=== PATIENT | male | born 1965 | race Caucasian/White ===

== ENCOUNTER → 2019-02-21 08:32 | Outpatient (CLI) | payer OTHER, SELFPAY ==
[2019-02-21 09:57] LABS: HEMOLYSIS < 15 (0-50)
[2019-02-21 10:05] LABS: Add Manual Diff / Slide Review NO; Alanine Aminotransferase 40 IU/L (<50); Albumin 4.7 g/dL (3.5-5.0); Albumin Globulin Ratio 1.8 (1.0-2.8); Alkaline Phosphatase 63 U/L (38-126); Aspartate Aminotransferase 37 IU/L (17-59); BUN Creatinine Ratio 31.3 (6-22); Basophils Absolute Auto 100 /uL (0-100); Basophils Percent Auto 1.1 % (0-2); Bilirubin Total 0.7 mg/dL (0.2-1.3); Blood Urea Nitrogen 25 mg/dL (9-20); Calcium 9.4 mg/dL (8.4-10.2); Carbon Dioxide 25 mmol/L (22-32); Chloride 106 mmol/L (98-107); Cholesterol 201 mg/dL (140-199); Eosinophils Absolute Auto 300 /uL (0-450); Eosinophils Percent Auto 5.5 % (2-4); Estimated Glomerular Filt Rate > 60.0 mL/min (>60); Globulin 2.6 g/dL (1.7-4.1); Glucose 86 mg/dL (70-100); HDL Cholesterol 44 mg/dL (40-60); Hematocrit 42.8 % (41-53); Hemoglobin 14.7 g/dL (13.5-17.5); LDL Cholesterol Calculated 131 mg/dL (<100); Lymphocytes Absolute Auto 1100 /uL (1100-4500); Lymphocytes Percent Auto 21.1 % (25-40); Mean Corpuscular HGB Conc 34.4 % (30-36); Mean Corpuscular Hemoglobin 30.1 PG (26-34); Mean Corpuscular Volume 87.5 fL (80-100); Monocytes Absolute Auto 300 /uL (0-900); Monocytes Percent Auto 6.6 % (3-14); Neutrophils Absolute Auto 3400 /uL (1500-7000); Neutrophils Percent Auto 65.7 % (50-75); Platelet Count 233 X10^3/uL (150-400); Potassium 4.4 mmol/L (3.4-5.1); Red Blood Cell Count 4.89 X10^6/uL (4.5-5.9); Red Cell Distribution Width 12.7 % (11.6-14.8); Sodium 140 mmol/L (137-145); Total Protein 7.3 g/dL (6.3-8.2); Triglycerides 131 mg/dL (35-150); White Blood Cell Count 5.2 X10^3/uL (4.5-11.0)
[2019-02-21 10:43] LABS: Free T3, Triiodothyronine Free 3.88 pg/mL (2.77-5.27)
[2019-02-21 10:57] LABS: Thyroid Stimulating Hormone 0.54 uIU/mL (0.47-4.68)
[2019-02-21 12:31] LABS: Creatinine Urine Random 43.5 mg/dL
[2019-02-21 12:36] LABS: Microalbumi Creatinin Ratio Ur 13.7 ug/mg CR (<30); Microalbumin Urine Random < 0.6 mg/dL (0-1.6)
[2019-02-21 14:08] LABS: Prostate Specific Antigen 0.672 ng/mL (0.10-4.00)
== END ==
PROVIDERS: Visit Provider Nurse Practitioner
DX: Z00.00 Encounter for general adult medical examination without abnormal findings (principal); I10 Essential (primary) hypertension
CPT/HCPCS: 36415; 80053; 80061; 82043; 82570; 84153; 84439; 84443; 84481; 85025

== ENCOUNTER → 2019-03-21 10:41 | Outpatient (CLI) | payer OTHER, SELFPAY ==
--- NOTE | 2019-03-21 10:42 | DI.US.S_ITS ---
PROCEDURE: US SOFT TISSUE HEAD AND NECK INDICATIONS: MASS, MEDIAL ASPECT CLAVICAL TECHNIQUE: Real-time scanning was performed of the neck region of interest, with image documentation. COMPARISON: None. FINDINGS: Asymmetry noted involving the medial clavicles bilaterally of unclear etiology. No definite fluid collections are seen. IMPRESSION: Asymmetry of the medial aspect of the left clavicle which cannot be further assessed by ultrasound. Consider clavicular x-ray series or CT for further assessment. Dictated by: Wesley Castañeda Dori Interpreted: Amado Rosario MD on 03/21/2019 at 12:41 Approved by: Amado Rosario M.D. on 03/21/2019 at 12:50
== END ==
PROVIDERS: Visit Provider Nurse Practitioner
DX: R22.1 Localized swelling, mass and lump, neck (principal)
CPT/HCPCS: 76536

== ENCOUNTER → 2019-04-03 14:52 | Outpatient (CLI) | payer OTHER, SELFPAY ==
--- NOTE | 2019-04-03 14:54 | DI.RAD.S_ITS ---
PROCEDURE: XR CLAVICLE LT INDICATIONS: asymtery TECHNIQUE: 2 views of the clavicle were acquired. COMPARISON: None. FINDINGS: Bones: No fractures or dislocations. No suspicious bony lesions. Soft tissues: No suspicious soft tissue calcifications. IMPRESSION: No lesion seen. Dictated by: Marcelo Vera M.D. on 04/03/2019 at 15:47 Approved by: Marcelo Vera M.D. on 04/03/2019 at 15:47
== END ==
PROVIDERS: PCP Nurse Practitioner; Visit Provider Nurse Practitioner
DX: R22.2 Localized swelling, mass and lump, trunk (principal); M95.8 Other specified acquired deformities of musculoskeletal system
CPT/HCPCS: 73000

== ENCOUNTER → 2019-04-16 08:35 | Outpatient (CLI) | payer OTHER, SELFPAY ==
[2019-04-16 09:40] LABS: BUN Creatinine Ratio 26.3 (6-22); Blood Urea Nitrogen 21 mg/dL (9-20); Calcium 9.6 mg/dL (8.4-10.2); Carbon Dioxide 26 mmol/L (22-32); Chloride 106 mmol/L (98-107); Estimated Glomerular Filt Rate > 60.0 mL/min (>60); Glucose 92 mg/dL (70-100); HEMOLYSIS < 15 (0-50); Potassium 4.5 mmol/L (3.4-5.1); Sodium 139 mmol/L (137-145)
== END ==
PROVIDERS: PCP Nurse Practitioner; Visit Provider Nurse Practitioner
DX: N28.9 Disorder of kidney and ureter, unspecified (principal)
CPT/HCPCS: 36415; 80048

== ENCOUNTER → 2019-04-17 12:12 | Outpatient (CLI) | payer OTHER, SELFPAY ==
--- NOTE | 2019-04-17 12:13 | DI.CT.S_ITS ---
PROCEDURE: CT UE LT W CON INDICATIONS: Left clavicle mass TECHNIQUE: After the administration of intravenous contrast, 3 mm axial sections acquired of the left shoulder, with coronal and sagittal reformats. COMPARISON: None. FINDINGS: Image quality: Excellent. Bones: Examination of left shoulder osseous structures shows normal alignment. No shoulder fracture or dislocation. Mild acromioclavicular joint, glenohumeral joint and sternoclavicular joint osteophytic changes are seen. No suspicious intraosseous lesion or area of abnormal intraosseous enhancement. Soft tissues: Surface skin marker is placed over the anterior aspect of upper chest near distal clavicle and sternoclavicular joint. There is a small hypodense structure anterior to the left sternocleidomastoid muscle and sternoclavicular joint measures up to 1.5 x 0.5 x 1.1 cm in its largest transverse, AP, and clinical dimensions and measures approximately 1.1 Hounsfield unit density. This structure appears to be communicating with the anterior portion of sternoclavicular joint. There is no supraclavicular or axillary lymphadenopathy. Visualized left lung field is clear. No full-thickness rotator cuff tendon rupture is seen. IMPRESSION: 1. 1.5 x 0.5 x 1.1 cm hypodense oval structure anterior to the inferior left sternocleidomastoid muscle and appears to be anterior and communicating with left sternoclavicular joint. Findings likely represent a small ganglion cyst in this area. No gross soft tissue density lesion is seen. No area of abnormal enhancement. 2. Mild left shoulder joint osteoarthritis. No fracture or dislocation. No suspicious intraosseous lesion. 3. No significant joint effusion. No significant rotator cuff muscle atrophy. No full-thickness rotator cuff tendon rupture. Dictated by: Amado Rosario M.D. on 04/17/2019 at 13:56 Approved by: Amado Rosario M.D. on 04/17/2019 at 14:10
== END ==
PROVIDERS: PCP Nurse Practitioner; Visit Provider Family Medicine
DX: M25.812 Other specified joint disorders, left shoulder (principal); M19.012 Primary osteoarthritis, left shoulder
CPT/HCPCS: 73201; Q9967

== ENCOUNTER → 2019-06-10 07:43 | Outpatient (CLI) | payer OTHER, SELFPAY ==
[2019-06-10 08:42] LABS: Alanine Aminotransferase 40 IU/L (<50); Albumin 4.4 g/dL (3.5-5.0); Albumin Globulin Ratio 1.6 (1.0-2.8); Alkaline Phosphatase 68 U/L (38-126); Aspartate Aminotransferase 35 IU/L (17-59); Bilirubin Total 0.7 mg/dL (0.2-1.3); Bilirubin Unconjugated 0.7 mg/dL (0.0-1.1); Cholesterol 128 mg/dL (140-199); Globulin 2.7 g/dL (1.7-4.1); HDL Cholesterol 48 mg/dL (40-60); HEMOLYSIS < 15 (0-50); LDL Cholesterol Calculated 65 mg/dL (<100); Total Protein 7.1 g/dL (6.3-8.2); Triglycerides 76 mg/dL (35-150)
== END ==
PROVIDERS: PCP Nurse Practitioner; Referring Provider Nurse Practitioner; Visit Provider Nurse Practitioner
DX: Z79.899 Other long term (current) drug therapy (principal); E78.5 Hyperlipidemia, unspecified
CPT/HCPCS: 36415; 80061; 80076

== ENCOUNTER → 2020-06-10 07:41 | Outpatient (CLI) | payer OTHER, SELFPAY ==
[2020-06-10 08:11] LABS: Add Manual Diff / Slide Review NO; Basophils Absolute Auto 0 /uL (0-100); Basophils Percent Auto 0.9 % (0-2); Eosinophils Absolute Auto 200 /uL (0-450); Eosinophils Percent Auto 4.5 % (2-4); Hematocrit 43.3 % (41-53); Hemoglobin 14.7 g/dL (13.5-17.5); Lymphocytes Absolute Auto 800 /uL (1100-4500); Lymphocytes Percent Auto 18.8 % (25-40); Mean Corpuscular Hemoglobin 29.7 PG (26-34); Mean Corpuscular Volume 87.3 fL (80-100); Monocytes Absolute Auto 300 /uL (0-900); Monocytes Percent Auto 7.6 % (3-14); Neutrophils Absolute Auto 3000 /uL (1500-7000); Neutrophils Percent Auto 68.2 % (50-75); Platelet Count 202 X10^3/uL (150-400); Red Blood Cell Count 4.96 X10^6/uL (4.5-5.9); Red Cell Distribution Width 12.6 % (11.6-14.8); White Blood Cell Count 4.4 X10^3/uL (4.5-11.0)
[2020-06-10 08:32] LABS: Creatinine Urine Random 181.4 mg/dL
[2020-06-10 08:37] LABS: Alanine Aminotransferase 48 IU/L (<50); Albumin 4.4 g/dL (3.5-5.0); Albumin Globulin Ratio 1.7 (1.0-2.8); Alkaline Phosphatase 71 U/L (38-126); Aspartate Aminotransferase 41 IU/L (17-59); Bilirubin Total 0.7 mg/dL (0.2-1.3); Blood Urea Nitrogen 18 mg/dL (9-20); Calcium 9.2 mg/dL (8.4-10.2); Carbon Dioxide 27 mmol/L (22-32); Chloride 106 mmol/L (98-107); Cholesterol 138 mg/dL (140-199); Estimated Glomerular Filt Rate > 60.0 mL/min (>60); Globulin 2.6 g/dL (1.7-4.1); Glucose 95 mg/dL (70-100); HDL Cholesterol 46 mg/dL (40-60); HEMOLYSIS < 15 (0-50); LDL Cholesterol Calculated 75 mg/dL (<100); Potassium 4.3 mmol/L (3.4-5.1); Sodium 138 mmol/L (137-145); Triglycerides 83 mg/dL (35-150)
[2020-06-10 08:41] LABS: Microalbumin Urine Random < 0.6 mg/dL (0-1.6)
[2020-06-10 09:00] LABS: Free T3, Triiodothyronine Free 3.76 pg/mL (2.77-5.27); Free T4, Direct Thyroxine 1.18 ng/dL (0.78-2.19)
[2020-06-10 09:13] LABS: Thyroid Stimulating Hormone 0.565 uIU/mL (0.47-4.68)
== END ==
PROVIDERS: PCP Nurse Practitioner; Referring Provider Nurse Practitioner; Visit Provider Nurse Practitioner
DX: Z00.00 Encounter for general adult medical examination without abnormal findings (principal); E78.5 Hyperlipidemia, unspecified; F32.9 Major depressive disorder, single episode, unspecified; F41.9 Anxiety disorder, unspecified; G47.00 Insomnia, unspecified; I10 Essential (primary) hypertension
CPT/HCPCS: 36415; 80053; 80061; 82043; 82570; 84439; 84443; 84481; 85025

== ENCOUNTER → 2020-06-15 13:16 | Outpatient (CLI) | payer OTHER, SELFPAY ==
--- NOTE | 2020-06-15 13:18 | DI.RAD.S_ITS ---
PROCEDURE: XR KNEE LT 3V INDICATIONS: left knee pain TECHNIQUE: 3 views of the knee were acquired. COMPARISON: None. FINDINGS: Bones: No fractures or dislocations. No suspicious bony lesions. Mild tricompartmental knee joint degeneration. Soft tissues: No joint effusion. No suspicious soft tissue calcifications. IMPRESSION: Mild osteoarthritis. Dictated by: Elena Byrne M.D. on 06/15/2020 at 14:35 Approved by: Elena Byrne M.D. on 06/15/2020 at 14:36
== END ==
PROVIDERS: PCP Nurse Practitioner; Referring Provider Nurse Practitioner; Visit Provider Nurse Practitioner
DX: M25.562 Pain in left knee (principal); M17.12 Unilateral primary osteoarthritis, left knee
CPT/HCPCS: 73562

== ENCOUNTER → 2021-07-04 08:50 | Outpatient (CLI) | payer OTHER, SELFPAY ==
[2021-07-04 09:50] LABS: Hematocrit 41.8 % (41-53); Hemoglobin 14.2 g/dL (13.5-17.5); Mean Corpuscular Hemoglobin 29.9 PG (26-34); Mean Corpuscular Volume 87.7 fL (80-100); Platelet Count 210 X10^3/uL (150-400); Red Blood Cell Count 4.76 X10^6/uL (4.5-5.9); White Blood Cell Count 4.3 X10^3/uL (4.5-11.0)
[2021-07-04 10:20] LABS: Alanine Aminotransferase 34 IU/L (<50); Albumin 4.5 g/dL (3.5-5.0); Albumin Globulin Ratio 1.7 (1.0-2.8); Alkaline Phosphatase 59 U/L (38-126); Aspartate Aminotransferase 44 IU/L (17-59); BUN Creatinine Ratio 18.7 (6-22); Bilirubin Total 0.8 mg/dL (0.2-1.3); Blood Urea Nitrogen 14 mg/dL (9-20); Calcium 8.9 mg/dL (8.4-10.2); Carbon Dioxide 24 mmol/L (22-32); Chloride 110 mmol/L (98-107); Cholesterol 152 mg/dL (140-199); Estimated Glomerular Filt Rate > 60.0 mL/min (>60); Globulin 2.6 g/dL (1.7-4.1); Glucose 97 mg/dL (70-100); HDL Cholesterol 46 mg/dL (40-60); HEMOLYSIS < 15 (0-50); LDL Cholesterol Calculated 89 mg/dL (<100); Potassium 3.9 mmol/L (3.4-5.1); Sodium 140 mmol/L (137-145); Total Protein 7.1 g/dL (6.3-8.2); Triglycerides 87 mg/dL (35-150)
[2021-07-04 10:35] LABS: Free T3, Triiodothyronine Free 3.62 pg/mL (2.77-5.27); Free T4, Direct Thyroxine 1.19 ng/dL (0.78-2.19)
[2021-07-04 10:49] LABS: Thyroid Stimulating Hormone 0.416 uIU/mL (0.47-4.68)
[2021-07-04 13:13] LABS: Creatinine Urine Random 151.8 mg/dL
[2021-07-04 13:21] LABS: Microalbumi Creatinin Ratio Ur 6.5 ug/mg CR (<30)
== END ==
PROVIDERS: PCP Nurse Practitioner; Referring Provider Nurse Practitioner; Visit Provider Nurse Practitioner
DX: Z00.00 Encounter for general adult medical examination without abnormal findings (principal)
CPT/HCPCS: 36415; 80053; 80061; 82043; 82570; 84439; 84443; 84481; 85027

== ENCOUNTER → 2022-07-20 07:42 | Outpatient (CLI) | payer OTHER, SELFPAY ==
[2022-07-20 08:40] LABS: Add Manual Diff / Slide Review NO; Basophils Absolute Auto 0 /uL (0-100); Basophils Percent Auto 0.9 % (0-2); Eosinophils Absolute Auto 200 /uL (0-450); Eosinophils Percent Auto 5.5 % (2-4); Hematocrit 40.9 % (41-53); Hemoglobin 14.2 g/dL (13.5-17.5); Lymphocytes Absolute Auto 600 /uL (1100-4500); Lymphocytes Percent Auto 15.3 % (25-40); Mean Corpuscular HGB Conc 34.8 % (30-36); Mean Corpuscular Hemoglobin 29.8 PG (26-34); Mean Corpuscular Volume 85.8 fL (80-100); Monocytes Absolute Auto 300 /uL (0-900); Monocytes Percent Auto 7.7 % (3-14); Neutrophils Absolute Auto 2800 /uL (1500-7000); Neutrophils Percent Auto 70.6 % (50-75); Platelet Count 203 X10^3/uL (150-400); Red Blood Cell Count 4.76 X10^6/uL (4.5-5.9); Red Cell Distribution Width 12.6 % (11.6-14.8)
[2022-07-20 08:54] LABS: Creatinine Urine Random 87.4 mg/dL
[2022-07-20 09:01] LABS: Microalbumin Urine Random < 0.6 mg/dL (0-1.6)
[2022-07-20 09:05] LABS: Alanine Aminotransferase 31 IU/L (<50); Albumin 4.2 g/dL (3.5-5.0); Albumin Globulin Ratio 1.6 (1.0-2.8); Alkaline Phosphatase 78 U/L (38-126); Aspartate Aminotransferase 28 IU/L (17-59); BUN Creatinine Ratio 18.6 (6-22); Bilirubin Total 0.9 mg/dL (0.2-1.3); Blood Urea Nitrogen 13 mg/dL (9-20); Carbon Dioxide 26 mmol/L (22-32); Chloride 105 mmol/L (98-107); Cholesterol 129 mg/dL (140-199); Estimated Glomerular Filt Rate > 60 mL/min (>60); Globulin 2.7 g/dL (1.7-4.1); Glucose 85 mg/dL (70-100); HDL Cholesterol 45 mg/dL (40-60); HEMOLYSIS < 15 (0-50); LDL Cholesterol Calculated 72 mg/dL (<100); Potassium 3.8 mmol/L (3.4-5.1); Sodium 137 mmol/L (137-145); Total Protein 6.9 g/dL (6.3-8.2); Triglycerides 60 mg/dL (35-150)
[2022-07-20 09:33] LABS: Free T3, Triiodothyronine Free 3.84 pg/mL (2.77-5.27); Free T4, Direct Thyroxine 1.49 ng/dL (0.78-2.19)
[2022-07-20 09:46] LABS: Thyroid Stimulating Hormone 0.438 uIU/mL (0.47-4.68)
[2022-07-20 18:51] LABS: HIV 1 & 2 Ab/Ag 4th Gen Combo NEGATIVE (NEGATIVE); Hep C Virus Ab w/Reflex Quant NEGATIVE s/c (NEGATIVE)
== END ==
PROVIDERS: PCP Nurse Practitioner; Referring Provider Nurse Practitioner; Visit Provider Nurse Practitioner
DX: Z00.00 Encounter for general adult medical examination without abnormal findings (principal); Z11.4 Encounter for screening for human immunodeficiency virus [HIV]; Z11.59 Encounter for screening for other viral diseases
CPT/HCPCS: 36415; 80053; 80061; 82043; 82570; 84439; 84443; 84481; 85025; 86803; 87389

== ENCOUNTER → 2022-10-03 08:36 | Outpatient (CLI) | payer OTHER, SELFPAY ==
[2022-10-04 15:36] LABS: Fecal Immunochemical Test Negative (Negative)
== END ==
PROVIDERS: Family Provider Nurse Practitioner; PCP Nurse Practitioner; Referring Provider Nurse Practitioner; Visit Provider Nurse Practitioner
DX: Z12.11 Encounter for screening for malignant neoplasm of colon (principal)
CPT/HCPCS: 82274

== ENCOUNTER → 2022-11-01 08:00 | Outpatient (CLI) | payer OTHER, SELFPAY ==
--- NOTE | 2022-11-01 08:02 | DI.ECHO.S_ITS ---
[facility] +---------+ : : [address] : : : : [id number] : : : : Phone: [phone]+ Echocardiogram Report + + :Name: KALLIE COMER Study Date: 11/01/2022 Height: 66 in : :[facility] ReadingLocation: Weight: 176 lb : : Gender: Male BSA: 1.9 m2 : :: 1965 Age: 57 yrs BP: 122/84 mmHg: :Reason For Study: HYPERTENSION : :Ordering Physician: CARRIE, : :ANGELITO Performed By: Olga Cabrera : :Referring: ANGELITO BUTLER : + + Interpretation Summary The left ventricle is normal in size and wall thickness. Left ventricular systolic function appears normal without focal wall motion abnormalities. The ejection fraction is estimated to be 60-65%. Diastolic parameters suggest probable normal left ventricular diastolic function and normal filling pressures. The right ventricle is normal in size and function. The right ventricular systolic pressure is estimated to be at least 21 mmHg based on an estimated right atrial pressure of 3 mm Hg. The left atrial size is normal. Right atrial size is normal. There is no significant valvular heart disease. The aortic root is normal size. Procedure: A two-dimensional transthoracic echocardiogram with color flow and Doppler was performed. The study quality was technically adequate. There is no prior echocardiogram noted for this patient. The patient was in sinus rhythm with heart rates between 61-67 bpm during the exam. Left Ventricle: The left ventricle is normal in size and wall thickness. Left ventricular systolic function appears normal without focal wall motion abnormalities. The ejection fraction is estimated to be 60-65%. Diastolic parameters suggest probable normal left ventricular diastolic function and normal filling pressures. Right Ventricle: The right ventricle is normal in size and function. Atria: The left atrial size is normal. Right atrial size is normal. There is no Doppler evidence for an interatrial shunt. Mitral Valve: There is a flat closure plane of the the mitral valve leaflets. There is mild mitral regurgitation. Aortic Valve: The aortic valve is trileaflet. The aortic valve opens well. There is no aortic valve stenosis. No aortic regurgitation is present. Tricuspid Valve: The tricuspid valve is normal in structure and function. There is mild tricuspid regurgitation. The right ventricular systolic pressure is estimated to be at least 21 mmHg based on an estimated right atrial pressure of 3 mm Hg. Pulmonic Valve: The pulmonic valve leaflets are thin and pliable; valve motion is normal. There is trace pulmonic regurgitation. There is no significant valvular heart disease. Great Vessels: The aortic root is normal size. The dimensions of the ascending aorta are normal. The IVC is of normal diameter and collapses greater than 50% with a sniff. This suggests a low right atrial pressure of 3 mm Hg. Pericardium/ Pleura There is no pericardial effusion. There is no pleural effusion. MMode/2D Measurements & Calculations LVIDd: 5.0 cm LVOT diam: 1.9 cm LVIDs: 3.0 cm Ao root diam: 3.2 cm FS: 38.5 % asc Aorta Diam: 2.9 cm EPSS: 0.42 cm Ao Arch Diam (Prox Trans): 2.9 cm IVSd: 0.76 cm LVPWd: 0.82 cm LV boyd. diameter/BSA (cm/m^2): 2.6 LV sys. diameter/BSA (cm/m^2): 1.6 LA A2 area: 17.8 cm2 RA long axis: 5.3 cm LA A4 area: 14.5 cm2 RA area: 14.0 cm2 LA length (vol): 4.8 cm RA vol: 31.5 ml LA vol: 45.1 ml RA : 16.6 ml/m2 LA vol index: 23.8 ml/m2 IVC diam: 1.3 cm RVD1 (basal): 4.0 cm TAPSE: 3.1 cm Doppler Measurements & Calculations Ao V2 max: 124.5 cm/sec LVOT Max Solo: 106.7 cm/sec Ao V2 mean: 94.3 cm/sec LV V1 max P.6 mmHg Ao max P.2 mmHg LV V1 VTI: 23.1 cm Ao mean P.8 mmHg DEBORAH(I,D): 2.4 cm2 Ao V2 VTI: 26.9 cm DEBORAH(V,D): 2.4 cm2 sev ratio: 0.86 DEBORAH indexed to BSA (cm^2/m^2): 1.3 MV E max solo: 60.4 cm/sec TR max solo: 217.5 cm/sec MV A max solo: 60.4 cm/sec TR max P.9 mmHg MV E/A: 1.0 PA pr(Accel): 19.1 mmHg Med Peak E' Solo: 5.2 cm/sec E/E' med: 11.5 Lat Peak E' Solo: 8.0 cm/sec E/E' lat: 7.6 E/e' average: 9.5 MV dec time: 0.24 sec SV(LVOT): 65.7 ml Reading Physician:06:03 PM
== END ==
PROVIDERS: Family Provider Nurse Practitioner; PCP Nurse Practitioner; Referring Provider Nurse Practitioner; Visit Provider Nurse Practitioner
DX: I10 Essential (primary) hypertension (principal); I08.1 Rheumatic disorders of both mitral and tricuspid valves
CPT/HCPCS: 93005; 93306

== ENCOUNTER 2022-12-19 10:45 | Outpatient (RCR) | payer OTHER, SELFPAY ==
--- NOTE | 2022-11-22 13:16 | PT.OIE ---
Current Diagnoses Pain in left hip (11/22/22) Pain in right knee (11/22/22) Pain in left knee (11/22/22) Low back pain, unspecified (11/22/22) Muscle weakness (generalized) (11/22/22) Difficulty in walking, not elsewhere classified (11/22/22) Past Medical History (Last Reviewed 09/25/22 @ 13:58 by Britta Deleon) Anxiety Caregiver role strain Chicken pox (~1981) Depression (~2015) Erectile dysfunction GERD (gastroesophageal reflux disease) (~2013) Hypertension (~2017) Mass of chest wall, left Numerous moles PTSD (post-traumatic stress disorder) Scoliosis (~2014) Tinnitus Past Surgical History (Last Reviewed 09/25/22 @ 13:58 by Britta Deleon) Anesthesia History of hernia repair (~1991) History of hernia repair (~2013) History of vasectomy (~2007) Visit Care Team Role Provider Type JACKELINE Back Attending Provider Advanced Veterans' Counselor Family Provider Primary Care Provider Referring Provider Specialty: Family Practice Address: [address] [place] [address], [facility] Email: [email or web address] Physical Therapy Initial Evaluation PT-OP-A Visit Information Start: 11/21/22 17:55 Freq: Status: Active Protocol: Document 11/22/22 09:07 [facility] (Rec: 11/22/22 10:02 [facility] [id number]) Out-Patient Physical Therapy Visit Information Visit Information Visit Type Initial Evaluation Visit Start Time 09:07 Visit Stop Time 09:52 Total Visit Minutes 45 Visit Number 1 Number of BIOLOGICAL SCIENCE AIDE Visits 0 PT-OP-B Current Condition Start: 11/21/22 17:55 Freq: Status: Active Protocol: Document 11/22/22 09:07 [facility] (Rec: 11/22/22 10:02 [facility] [id number]) Current Condition History of Current Condition Onset Date chronic Current Complaints LBP History of Current Condition Pt reports scololisis was found in a xray prior to moving here. 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 Pt reports if he stands in one spot(>30 min) or is on his feet for a long time (walking long time). Pt reports his L lat hip was hurting when slept on L side(>1 mile). he is now using a hip pillow which has helped. He doesn't feel the hip a lot anymore. TOday knees are hurting today but did a lot of work on a shed going up and down and being on knees. Pt reports tehy do hurt when going up/down stairs a lot. He is careful when lifting and makes sure to use the legs and his back doesn't hurt if he does well with lifting. Pain has gotten worse as he has gotten older. Pt reports history of hernia repairs ( 1991 L inguinal open repair, 2013 L inguinal laproscopic and another hernia repair). Treatment Goals Patient/Caregiver Goals Have some exercises and stretches to ease the pain PT-OP-C Subjective Start: 11/21/22 17:55 Freq: Status: Active Protocol: Document 11/22/22 09:07 [facility] (Rec: 11/22/22 10:02 [facility] [id number]) Patient Questionnaires Lower Extremity Functional Scale LEFS Score 64/80 Oswestry Low Back Index Oswestry Score 9/50 (18%) OP-PT Pain Assessment Location back pain Pain Location Details L lower lumbar Intensity 4 Scale Used Numeric (0 - 10) Description Aching Frequency Intermittent Pain Duration slowly goes away Pain Aggravating Factors Standing,Walking Other Pain Aggravating Factors long drives, 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 Pain Alleviating Factors Heat Other Pain Alleviating Factors change position PT-OP-D Balance Start: 11/21/22 17:55 Freq: Status: Active Protocol: Document 11/22/22 09:07 [facility] (Rec: 11/22/22 10:02 [facility] [id number]) Balance Tests Single Limb Standing Single Limb- Right >30 sec lat hip shear and tilt of torso Single Limb- Left >30 sec lat hip shear and tilt of torso PT-OP-F Manual Assessment Start: 11/21/22 17:55 Freq: Status: Active Protocol: Document 11/22/22 09:07 [facility] (Rec: 11/22/22 10:02 [facility] [id number]) Manual Assessments Joint Mobility Assessment Joint Mobility Assessment equal greater trochanter height and L iliac crest higher PT-OP-G Mobility & Gait Start: 11/21/22 17:55 Freq: Status: Active Protocol: Document 11/22/22 09:07 [facility] (Rec: 11/22/22 10:02 [facility] [id number]) OP Gait Assessment Comments Gait Comments walks stiffly and has dec arm swing, comes down harder on RLE PT-OP-J Posture/Palpation/Skin Start: 11/21/22 17:55 Freq: Status: Active Protocol: Document 11/22/22 09:07 [facility] (Rec: 11/22/22 10:02 [facility] [id number]) Posture Evaluation [facility] Postural Classification System [place] Postural Classifications Posterior/Posterior Vertebral Compression Test 3 Lumbar Protective Mechanism Left AP 2 Lumbar Protective Mechanism Right AP 2 Lumbar Protective Mechanism Left PA 2 Lumbar Protective Mechanism Right PA 2 PT-OP-K Range of Motion Start: 11/21/22 17:55 Freq: Status: Active Protocol: Document 11/22/22 09:07 [facility] (Rec: 11/22/22 10:02 [facility] [id number]) Lumbar Spine Range of Motion Lumbar Spine Active Percentage Flexion 80 Extension 75 Rotation Left 80 Rotation Right 80 Lateral Flexion Left 35 Lateral Flexion Right 50 Comments 60% HS & 40% back w/flex; discomfort w/flex/ext; pain L back w/B SB; b back pain w/rot PT-OP-L Special Tests Start: 11/21/22 17:55 Freq: Status: Active Protocol: Document 11/22/22 09:07 [facility] (Rec: 11/22/22 10:02 [facility] [id number]) Special Tests Lumbar Spine Special Tests fwd bend Test Results post L marchers Test Results post L ext sit Comments mild tension L>R HS Mega Test Results L>R tightness; hip impingement w/L hip flex Straight Leg Raise Test Results mild HS tightness Slump Test Results neg PT-OP-M Strength Start: 11/21/22 17:55 Freq: Status: Active Protocol: Document 11/22/22 09:07 [facility] (Rec: 11/22/22 10:02 [facility] [id number]) Hip Strength Hip Manual Muscle Testing Right Flexion (L2) 4- Good- Extension (S1) 4- Good- Abduction 3+ Fair+ Adduction 5 Normal External Rotation 5 Normal Internal Rotation 4+ Good+ Left Flexion (L2) 3+ Fair+ Extension (S1) 4- Good- Abduction 4 Good Adduction 5 Normal External Rotation 5 Normal Internal Rotation 4+ Good+ Comments pain w/IR B and L>R abd Knee Strength Knee Manual Muscle Testing Right Flexion (S2) 5 Normal Extension (L3) 5 Normal Left Flexion (S2) 5 Normal Extension (L3) 5 Normal Ankle/Foot Strength Ankle and Foot Manual Muscle Testing Right Dorsiflexion (L4) 5 Normal Plantarflexion (S1) 5 Normal Left Dorsiflexion (L4) 5 Normal Plantarflexion (S1) 5 Normal Comments PF tested seated B PT-OP-T Assessment and Plan Start: 11/21/22 17:55 Freq: Status: Active Protocol: Document 11/22/22 09:07 [facility] (Rec: 11/22/22 10:02 [facility] [id number]) Physical Therapy Assessment Rehab Potential Rehabilitation Potential Good Evaluation Complexity Number of Personal Factors/Comorbidities 3 or More Number of Body Systems Impaired 4 or More Clinical Presentation at Evaluation Evolving Impairments Impairments Activity Tolerance,Balance, Functional Activities, Functional Mobility,Gait,Pain, Posture,ROM,Soft Tissue Mobility,Strength Goals strength Short Term Goal (STG) Pt will be indep w/HEP STG Duration 01/07/23 Switchboard Inspector Goal (LTG) pt will have at least 4/5 LPM and 5/5 on all LE MMT w/o inc pain LTG Duration 02/13/23 ROM Retirement Goal (LTG) Pt will have full back ROM w/o inc pain in order to allow for pt to do all typical activities w/o inc pain in his day. LTG Duration 02/13/23 walking Short Term Goal (STG) Pt will be able to walk 2 miles w/o inc pain greater than 2/10 STG Duration 01/07/23 Switchboard Inspector Goal (LTG) Pt will be able to do 3 mile walks on uneven terrain w/o inc pain greater than 1/10. LTG Duration 02/14/23 Assessment Summary Assessment Pt presents w/chronic LBP w/ recent onset of L hip pain that has since improved mostly since pt started using pillow between his legs at night. He has limitation in all motions w/pain at end ranges and does note inc pain w/prolonged positions along w/extended walking (>1 hr). He does have core initiation but does show weakness when tested and postural dysfunction. 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 Pt would benefit from skilled PT to address deficits and improve his ability to function w/his grandson who he is the primary CG for along w/inc his ability to remain active w/o inc pain. Physical Therapy Plan Frequency and Duration Frequency of Treatment 1x/Week Duration of treatment (weeks) 12 Plan of Care Start Date 11/22/22 Plan of Care End Date 02/14/23 Therapeutic Interventions Therapeutic Interventions Balance Training,Gait Training ,Home Exercise Program,Joint Mobilizations,Manual Therapy, Neuromuscular Re-education, Orthotic/Prosthetic Management ,Patient/Caregiver Education, Self-Care/Home Management,Soft Tissue Mobilization,Taping, Therapeutic Activities, Therapeutic Exercises Modalities Cold Pack/Ice Massage,Electric Stimulation,Hot Packs, Traction- Mechanical Next Visit Focus/Plan Next Note Type Treatment Note
--- NOTE | 2022-11-22 13:16 | PT.OPPOC ---
Physical, Occupational & Speech Therapy At [facility] Current Diagnoses Pain in left hip (11/22/22) Pain in right knee (11/22/22) Pain in left knee (11/22/22) Low back pain, unspecified (11/22/22) Muscle weakness (generalized) (11/22/22) Difficulty in walking, not elsewhere classified (11/22/22) Visit Care Team Role Provider Type JACKELINE Back Attending Provider Advanced Machinist Wood Family Provider Primary Care Provider Referring Provider Specialty: Family Practice Address: [address] [place] [address], [facility] Email: [email or web address] Plan Of Care PT-OP-T Assessment and Plan Start: 11/21/22 17:55 Freq: Status: Active Protocol: Document 11/22/22 09:07 [facility] (Rec: 11/22/22 10:02 [facility] [id number]) Physical Therapy Assessment Rehab Potential Rehabilitation Potential Good Evaluation Complexity Number of Personal Factors/Comorbidities 3 or More Number of Body Systems Impaired 4 or More Clinical Presentation at Evaluation Evolving Impairments Impairments Activity Tolerance,Balance, Functional Activities, Functional Mobility,Gait,Pain, Posture,ROM,Soft Tissue Mobility,Strength Goals strength Short Term Goal (STG) Pt will be indep w/HEP STG Duration 01/07/23 Intermediate Goal (LTG) pt will have at least 4/5 LPM and 5/5 on all LE MMT w/o inc pain LTG Duration 02/13/23 ROM Defense Travel Administrator Goal (LTG) Pt will have full back ROM w/o inc pain in order to allow for pt to do all typical activities w/o inc pain in his day. LTG Duration 02/13/23 walking Short Term Goal (STG) Pt will be able to walk 2 miles w/o inc pain greater than 2/10 STG Duration 01/07/23 Defense Travel Administrator Goal (LTG) Pt will be able to do 3 mile walks on uneven terrain w/o inc pain greater than 1/10. LTG Duration 02/14/23 Assessment Summary Assessment Pt presents w/chronic LBP w/ recent onset of L hip pain that has since improved mostly since pt started using pillow between his legs at night. He has limitation in all motions w/pain at end ranges and does note inc pain w/prolonged positions along w/extended walking (>1 hr). He does have core initiation but does show weakness when tested and postural dysfunction. 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 Pt would benefit from skilled PT to address deficits and improve his ability to function w/his grandson who he is the primary CG for along w/inc his ability to remain active w/o inc pain. Physical Therapy Plan Frequency and Duration Frequency of Treatment 1x/Week Duration of treatment (weeks) 12 Plan of Care Start Date 11/22/22 Plan of Care End Date 02/14/23 Therapeutic Interventions Therapeutic Interventions Balance Training,Gait Training ,Home Exercise Program,Joint Mobilizations,Manual Therapy, Neuromuscular Re-education, Orthotic/Prosthetic Management ,Patient/Caregiver Education, Self-Care/Home Management,Soft Tissue Mobilization,Taping, Therapeutic Activities, Therapeutic Exercises Modalities Cold Pack/Ice Massage,Electric Stimulation,Hot Packs, Traction- Mechanical Next Visit Focus/Plan Next Note Type Treatment Note Plan of Care Dates Plan of Care Start Date 11/22/22 Plan of Care End Date 02/14/23 Electronically Signed by: Terra Weiner, PT 11/22/22 8633 If you are in agreement with this Plan of Care, please return a signed and dated copy. I have reviewed this Plan of Care and certify that the skilled therapy services above are required to meet the patient?s needs. Physician Signature Date Printed Name and Credentials Clinical Instructor Signature Printed Name and Credentials
--- NOTE | 2022-12-19 15:09 | PT.OTN ---
Current Diagnoses Pain in left hip (12/19/22) Pain in right knee (12/19/22) Pain in left knee (12/19/22) Low back pain, unspecified (12/19/22) Muscle weakness (generalized) (12/19/22) Difficulty in walking, not elsewhere classified (12/19/22) Physical Therapy Treatment Note PT-OP-A Visit Information Start: 11/21/22 17:55 Freq: Status: Active Protocol: Document 12/19/22 10:22 [facility] (Rec: 12/19/22 15:09 [facility] [id number]) Out-Patient Physical Therapy Visit Information Visit Information Visit Type Treatment Note Visit Start Time 10:45 Visit Stop Time 11:30 Total Visit Minutes 45 Visit Number 2 Number of LITHOGRAPH OPERATOR Visits 0 PT-OP-B Current Condition Start: 11/21/22 17:55 Freq: Status: Active Protocol: Document 11/22/22 09:07 [facility] (Rec: 11/22/22 10:02 [facility] [id number]) Current Condition History of Current Condition Onset Date chronic Current Complaints LBP History of Current Condition Pt reports scololisis was found in a xray prior to moving here. 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 Pt reports if he stands in one spot(>30 min) or is on his feet for a long time (walking long time). Pt reports his L lat hip was hurting when slept on L side(>1 mile). he is now using a hip pillow which has helped. He doesn't feel the hip a lot anymore. TOday knees are hurting today but did a lot of work on a shed going up and down and being on knees. Pt reports tehy do hurt when going up/down stairs a lot. He is careful when lifting and makes sure to use the legs and his back doesn't hurt if he does well with lifting. Pain has gotten worse as he has gotten older. Pt reports history of hernia repairs ( 1991 L inguinal open repair, 2013 L inguinal laproscopic and another hernia repair). Treatment Goals Patient/Caregiver Goals Have some exercises and stretches to ease the pain PT-OP-C Subjective Start: 11/21/22 17:55 Freq: Status: Active Protocol: Document 12/19/22 10:22 [facility] (Rec: 12/19/22 15:09 [facility] [id number]) OP-PT Subjective Patient Comments Patient Comments Pt reports he knows his back will be sore w/putting in a few blueberry bushes later PT-OP-D Balance Start: 11/21/22 17:55 Freq: Status: Active Protocol: Document 11/22/22 09:07 [facility] (Rec: 11/22/22 10:02 [facility] [id number]) Balance Tests Single Limb Standing Single Limb- Right >30 sec lat hip shear and tilt of torso Single Limb- Left >30 sec lat hip shear and tilt of torso PT-OP-F Manual Assessment Start: 11/21/22 17:55 Freq: Status: Active Protocol: Document 11/22/22 09:07 [facility] (Rec: 11/22/22 10:02 [facility] [id number]) Manual Assessments Joint Mobility Assessment Joint Mobility Assessment equal greater trochanter height and L iliac crest higher PT-OP-G Mobility & Gait Start: 11/21/22 17:55 Freq: Status: Active Protocol: Document 11/22/22 09:07 [facility] (Rec: 11/22/22 10:02 [facility] [id number]) OP Gait Assessment Comments Gait Comments walks stiffly and has dec arm swing, comes down harder on RLE PT-OP-J Posture/Palpation/Skin Start: 11/21/22 17:55 Freq: Status: Active Protocol: Document 11/22/22 09:07 [facility] (Rec: 11/22/22 10:02 [facility] [id number]) Posture Evaluation Pepe Postural Classification System Pepe Postural Classifications Posterior/Posterior Vertebral Compression Test 3 Lumbar Protective Mechanism Left AP 2 Lumbar Protective Mechanism Right AP 2 Lumbar Protective Mechanism Left PA 2 Lumbar Protective Mechanism Right PA 2 PT-OP-K Range of Motion Start: 11/21/22 17:55 Freq: Status: Active Protocol: Document 11/22/22 09:07 [facility] (Rec: 11/22/22 10:02 [facility] [id number]) Lumbar Spine Range of Motion Lumbar Spine Active Percentage Flexion 80 Extension 75 Rotation Left 80 Rotation Right 80 Lateral Flexion Left 35 Lateral Flexion Right 50 Comments 60% HS & 40% back w/flex; discomfort w/flex/ext; pain L back w/B SB; b back pain w/rot PT-OP-L Special Tests Start: 11/21/22 17:55 Freq: Status: Active Protocol: Document 11/22/22 09:07 [facility] (Rec: 11/22/22 10:02 [facility] [id number]) Special Tests Lumbar Spine Special Tests fwd bend Test Results post L marchers Test Results post L ext sit Comments mild tension L>R HS Mega Test Results L>R tightness; hip impingement w/L hip flex Straight Leg Raise Test Results mild HS tightness Slump Test Results neg PT-OP-M Strength Start: 11/21/22 17:55 Freq: Status: Active Protocol: Document 11/22/22 09:07 [facility] (Rec: 11/22/22 10:02 [facility] [id number]) Hip Strength Hip Manual Muscle Testing Right Flexion (L2) 4- Good- Extension (S1) 4- Good- Abduction 3+ Fair+ Adduction 5 Normal External Rotation 5 Normal Internal Rotation 4+ Good+ Left Flexion (L2) 3+ Fair+ Extension (S1) 4- Good- Abduction 4 Good Adduction 5 Normal External Rotation 5 Normal Internal Rotation 4+ Good+ Comments pain w/IR B and L>R abd Knee Strength Knee Manual Muscle Testing Right Flexion (S2) 5 Normal Extension (L3) 5 Normal Left Flexion (S2) 5 Normal Extension (L3) 5 Normal Ankle/Foot Strength Ankle and Foot Manual Muscle Testing Right Dorsiflexion (L4) 5 Normal Plantarflexion (S1) 5 Normal Left Dorsiflexion (L4) 5 Normal Plantarflexion (S1) 5 Normal Comments PF tested seated B PT-OP-Q Treatments Start: 11/21/22 17:55 Freq: Status: Active Protocol: Document 12/19/22 10:22 [facility] (Rec: 12/19/22 15:09 [facility] [id number]) Therapeutic Exercises Supine Exercises bridge Supine Exercise Name w/alt march Side bilateral Reps/Minutes 10 isometric Supine Exercise Name abdominal series (push, cross, pull, push) Side bilateral Reps/Minutes 30sec ea Standing Exercises stretch Standing Exercise Name hip add Side bilateral Reps/Minutes 30 sec sidesteps Side bilateral gait at wall Standing Exercise Name high stepping Side bilateral Reps/Minutes 2x10 sec ea Manual Therapy Treatment Soft Tissue Mobilization lumbar Body Location L>R paraspinals Mobilization Type Strumming Intensity/Depth Moderate Body Position Prone Joint Mobilizations innominate Comments L caudal, L IR, R ER, L add FM s/l & R abd s/l FM sacrum Joint L caudal and UPA R FM w/LTR Body Position Prone hip Joint B Direction IR FM Body Position Prone Comments R flex supine FM PT-OP-T Assessment and Plan Start: 11/21/22 17:55 Freq: Status: Active Protocol: Document 12/19/22 10:22 [facility] (Rec: 12/19/22 15:09 [facility] [id number]) Physical Therapy Assessment Goals strength Short Term Goal (STG) Pt will be indep w/HEP STG Duration 01/07/23 Commercial Reporter Goal (LTG) pt will have at least 4/5 LPM and 5/5 on all LE MMT w/o inc pain LTG Duration 02/13/23 ROM Snf Goal (LTG) Pt will have full back ROM w/o inc pain in order to allow for pt to do all typical activities w/o inc pain in his day. LTG Duration 02/13/23 walking Short Term Goal (STG) Pt will be able to walk 2 miles w/o inc pain greater than 2/10 STG Duration 01/07/23 Commercial Reporter Goal (LTG) Pt will be able to do 3 mile walks on uneven terrain w/o inc pain greater than 1/10. LTG Duration 02/14/23 Assessment Summary Assessment Pt had improved hip range B after manual treatment and iliac crests were also level. Cues given trhoguhout exercises and pt is challenged by bridge marching, requiring cues to focus on pevlis staying level. Physical Therapy Plan Frequency and Duration Frequency of Treatment 1x/Week Duration of treatment (weeks) 12 Plan of Care Start Date 11/22/22 Plan of Care End Date 02/14/23 Next Visit Focus/Plan Next Note Type Treatment Note Next Visit Plan review exercises; give further core stability exercises, innominate ext & work on ant chain tightness, work on PNF pelvic patterns
--- NOTE | 2023-01-10 14:27 | PT.OPDS ---
Current Diagnoses Pain in left hip (12/19/22) Pain in right knee (12/19/22) Pain in left knee (12/19/22) Low back pain, unspecified (12/19/22) Muscle weakness (generalized) (12/19/22) Difficulty in walking, not elsewhere classified (12/19/22) Visit Care Team Role Provider Type JACKELINE Back Attending Provider Advanced Team Physician Family Provider Primary Care Provider Referring Provider Specialty: Family Practice Address: [address] [place] [address], [facility] Email: [email or web address] Visit Number Visit Number 2 Discharge Summary PT-OP-B Current Condition Start: 11/21/22 17:55 Freq: Status: Active Protocol: Document 11/22/22 09:07 [facility] (Rec: 11/22/22 10:02 [facility] [id number]) Current Condition History of Current Condition Onset Date chronic Current Complaints LBP History of Current Condition Pt reports scololisis was found in a xray prior to moving here. 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 Pt reports if he stands in one spot(>30 min) or is on his feet for a long time (walking long time). Pt reports his L lat hip was hurting when slept on L side(>1 mile). he is now using a hip pillow which has helped. He doesn't feel the hip a lot anymore. TOday knees are hurting today but did a lot of work on a shed going up and down and being on knees. Pt reports tehy do hurt when going up/down stairs a lot. He is careful when lifting and makes sure to use the legs and his back doesn't hurt if he does well with lifting. Pain has gotten worse as he has gotten older. Pt reports history of hernia repairs ( 1991 L inguinal open repair, 2013 L inguinal laproscopic and another hernia repair). Treatment Goals Patient/Caregiver Goals Have some exercises and stretches to ease the pain PT-OP-C Subjective Start: 11/21/22 17:55 Freq: Status: Active Protocol: Document 12/19/22 10:22 [facility] (Rec: 12/19/22 15:09 [facility] [id number]) OP-PT Subjective Patient Comments Patient Comments Pt reports he knows his back will be sore w/putting in a few blueberry bushes later PT-OP-D Balance Start: 11/21/22 17:55 Freq: Status: Active Protocol: Document 11/22/22 09:07 [facility] (Rec: 11/22/22 10:02 [facility] [id number]) Balance Tests Single Limb Standing Single Limb- Right >30 sec lat hip shear and tilt of torso Single Limb- Left >30 sec lat hip shear and tilt of torso PT-OP-F Manual Assessment Start: 11/21/22 17:55 Freq: Status: Active Protocol: Document 11/22/22 09:07 [facility] (Rec: 11/22/22 10:02 [facility] [id number]) Manual Assessments Joint Mobility Assessment Joint Mobility Assessment equal greater trochanter height and L iliac crest higher PT-OP-G Mobility & Gait Start: 11/21/22 17:55 Freq: Status: Active Protocol: Document 11/22/22 09:07 [facility] (Rec: 11/22/22 10:02 [facility] [id number]) OP Gait Assessment Comments Gait Comments walks stiffly and has dec arm swing, comes down harder on RLE PT-OP-J Posture/Palpation/Skin Start: 11/21/22 17:55 Freq: Status: Active Protocol: Document 11/22/22 09:07 [facility] (Rec: 11/22/22 10:02 [facility] [id number]) Posture Evaluation [facility] Postural Classification System Pepe Postural Classifications Posterior/Posterior Vertebral Compression Test 3 Lumbar Protective Mechanism Left AP 2 Lumbar Protective Mechanism Right AP 2 Lumbar Protective Mechanism Left PA 2 Lumbar Protective Mechanism Right PA 2 PT-OP-K Range of Motion Start: 11/21/22 17:55 Freq: Status: Active Protocol: Document 11/22/22 09:07 [facility] (Rec: 11/22/22 10:02 [facility] [id number]) Lumbar Spine Range of Motion Lumbar Spine Active Percentage Flexion 80 Extension 75 Rotation Left 80 Rotation Right 80 Lateral Flexion Left 35 Lateral Flexion Right 50 Comments 60% HS & 40% back w/flex; discomfort w/flex/ext; pain L back w/B SB; b back pain w/rot PT-OP-L Special Tests Start: 11/21/22 17:55 Freq: Status: Active Protocol: Document 11/22/22 09:07 [facility] (Rec: 11/22/22 10:02 [facility] [id number]) Special Tests Lumbar Spine Special Tests fwd bend Test Results post L marchers Test Results post L ext sit Comments mild tension L>R HS Mega Test Results L>R tightness; hip impingement w/L hip flex Straight Leg Raise Test Results mild HS tightness Slump Test Results neg PT-OP-M Strength Start: 11/21/22 17:55 Freq: Status: Active Protocol: Document 11/22/22 09:07 [facility] (Rec: 11/22/22 10:02 [facility] [id number]) Hip Strength Hip Manual Muscle Testing Right Flexion (L2) 4- Good- Extension (S1) 4- Good- Abduction 3+ Fair+ Adduction 5 Normal External Rotation 5 Normal Internal Rotation 4+ Good+ Left Flexion (L2) 3+ Fair+ Extension (S1) 4- Good- Abduction 4 Good Adduction 5 Normal External Rotation 5 Normal Internal Rotation 4+ Good+ Comments pain w/IR B and L>R abd Knee Strength Knee Manual Muscle Testing Right Flexion (S2) 5 Normal Extension (L3) 5 Normal Left Flexion (S2) 5 Normal Extension (L3) 5 Normal Ankle/Foot Strength Ankle and Foot Manual Muscle Testing Right Dorsiflexion (L4) 5 Normal Plantarflexion (S1) 5 Normal Left Dorsiflexion (L4) 5 Normal Plantarflexion (S1) 5 Normal Comments PF tested seated B PT-OP-T Assessment and Plan Start: 11/21/22 17:55 Freq: Status: Active Protocol: Document 01/10/23 14:26 [facility] (Rec: 01/10/23 14:27 [facility] [id number]) Physical Therapy Assessment Goals strength Short Term Goal (STG) Pt will be indep w/HEP STG Duration 01/07/23 Traffic Sign Supervisor Goal (LTG) pt will have at least 4/5 LPM and 5/5 on all LE MMT w/o inc pain LTG Duration 02/13/23 ROM Traffic Sign Supervisor Goal (LTG) Pt will have full back ROM w/o inc pain in order to allow for pt to do all typical activities w/o inc pain in his day. LTG Duration 02/13/23 walking Short Term Goal (STG) Pt will be able to walk 2 miles w/o inc pain greater than 2/10 STG Duration 01/07/23 Fpc Goal (LTG) Pt will be able to do 3 mile walks on uneven terrain w/o inc pain greater than 1/10. LTG Duration 02/14/23 Assessment Summary Assessment Pt seen for IE and 1 follow up . DC d/t copay too high at this time. Pt to cont w/HEP given at last session. no progress made as pt has been seen for limited PT Physical Therapy Plan Discharge Physical Therapy Discharge Reasons Patient Request
== END 2023-01-22 12:02 | disposition home or self-care (01) ==
LOC: PHYS 10:45
PROVIDERS: Family Provider Nurse Practitioner; PCP Nurse Practitioner; Referring Provider Nurse Practitioner; Visit Provider Nurse Practitioner
DX: M25.552 Pain in left hip (principal); M54.50 Low back pain, unspecified; R26.2 Difficulty in walking, not elsewhere classified; M62.81 Muscle weakness (generalized); M25.562 Pain in left knee; M25.561 Pain in right knee
CPT/HCPCS: 97110; 97140; 97162

== ENCOUNTER → 2023-03-12 11:55 | Outpatient (CLI) | payer OTHER, SELFPAY ==
--- NOTE | 2023-03-12 | DI.CT.S_ITS ---
PROCEDURE: CT LUNG LOW DOSE SCREENING INDICATIONS: History of nicotine dependence TECHNIQUE: Noncontrast 2.0-2.5 mm thick sections acquired from the pulmonary apices to the posterior costophrenic angles. 7 mm thick axial MIP, and 5 mm coronal and sagittal reformats were then acquired. For radiation dose reduction, the following was used: automated exposure control, adjustment of mA and/or kV according to patient size. COMPARISON: None. FINDINGS: Image quality: Diagnostic, given the low radiation dose technique. Lungs and pleura: Mild centrilobular emphysematous changes including in multiple scattered thin-walled cysts. Scattered sub 6 mm pulmonary nodules, for example: -right upper lobe 3 mm nodule (3/83, MIP image 42) -right middle lobe 2 mm subpleural nodule (3/164, MIP image 82) Mediastinum: Heart size is normal. No pericardial effusion. No mediastinal adenopathy by size criteria. Thoracic aorta and central pulmonary arteries are normal in size. Esophagus is normal in caliber. No hiatal hernia. Bones and chest wall: No suspicious bony lesions. No vertebral body compression fractures. No axillary or supraclavicular adenopathy by size criteria. No thyroid nodules which require sonographic follow up, per consensus guidelines. Upper Abdomen: Visualized upper abdomen solid organs and bowel loops appear normal in the absence of contrast. IMPRESSION: Mild centrilobular emphysematous changes. Scattered sub 6 mm pulmonary solid pulmonary nodules. LUNG-RADS 2; continued annual low-dose CT chest screening, if eligible. Clinically Significant Non-pulmonary Findings: None. Dictated by: Amanda Talley M.D. on 03/12/2023 at 17:16 Approved by: Amanda Talley M.D. on 03/12/2023 at 17:25
== END ==
PROVIDERS: Family Provider Nurse Practitioner; PCP Nurse Practitioner; Referring Provider Nurse Practitioner; Visit Provider Nurse Practitioner
DX: Z12.2 Encounter for screening for malignant neoplasm of respiratory organs (principal); R91.8 Other nonspecific abnormal finding of lung field; Z87.891 Personal history of nicotine dependence
CPT/HCPCS: 71271

== ENCOUNTER → 2023-07-16 07:57 | Outpatient (CLI) | payer OTHER, SELFPAY ==
[2023-07-16 08:40] LABS: Add Manual Diff / Slide Review NO; Basophils Absolute Auto 0 /uL (0-100); Basophils Percent Auto 0.9 % (0-2); Eosinophils Absolute Auto 300 /uL (0-450); Eosinophils Percent Auto 5.2 % (2-4); Hematocrit 42.3 % (41-53); Hemoglobin 14.4 g/dL (13.5-17.5); Lymphocytes Absolute Auto 800 /uL (1100-4500); Lymphocytes Percent Auto 15.5 % (25-40); Mean Corpuscular HGB Conc 34.1 % (30-36); Mean Corpuscular Hemoglobin 29.7 PG (26-34); Mean Corpuscular Volume 86.9 fL (80-100); Monocytes Absolute Auto 300 /uL (0-900); Monocytes Percent Auto 5.9 % (3-14); Neutrophils Absolute Auto 3700 /uL (1500-7000); Neutrophils Percent Auto 72.5 % (50-75); Platelet Count 207 X10^3/uL (150-400); Red Blood Cell Count 4.86 X10^6/uL (4.5-5.9); Red Cell Distribution Width 12.8 % (11.6-14.8); White Blood Cell Count 5.1 X10^3/uL (4.5-11.0)
[2023-07-16 09:04] LABS: Alanine Aminotransferase 32 IU/L (<50); Albumin 4.1 g/dL (3.5-5.0); Albumin Globulin Ratio 1.6 (1.0-2.8); Alkaline Phosphatase 68 U/L (38-126); Aspartate Aminotransferase 32 IU/L (17-59); BUN Creatinine Ratio 26.2 (6-22); Bilirubin Total 0.7 mg/dL (0.2-1.3); Blood Urea Nitrogen 17 mg/dL (9-20); Calcium 9.2 mg/dL (8.4-10.2); Carbon Dioxide 27 mmol/L (22-32); Chloride 109 mmol/L (98-107); Cholesterol 138 mg/dL (140-199); Estimated Glomerular Filt Rate > 60 mL/min (>60); Globulin 2.6 g/dL (1.7-4.1); Glucose 95 mg/dL (70-100); HDL Cholesterol 43 mg/dL (40-60); HEMOLYSIS < 15 (0-50); LDL Cholesterol Calculated 70 mg/dL (<100); Potassium 4.2 mmol/L (3.4-5.1); Sodium 139 mmol/L (137-145); Total Protein 6.7 g/dL (6.3-8.2); Triglycerides 127 mg/dL (35-150)
[2023-07-16 09:28] LABS: TSH w/ Reflex to FT4 0.64 uIU/mL (0.47-4.68)
== END ==
PROVIDERS: Family Provider Nurse Practitioner; PCP Nurse Practitioner; Referring Provider Nurse Practitioner; Visit Provider Nurse Practitioner
DX: Z00.00 Encounter for general adult medical examination without abnormal findings (principal); E78.5 Hyperlipidemia, unspecified; I10 Essential (primary) hypertension; F41.9 Anxiety disorder, unspecified
CPT/HCPCS: 36415; 80053; 80061; 84443; 85025

== ENCOUNTER → 2023-09-26 15:50 | Outpatient (CLI) | payer OTHER, SELFPAY ==
--- NOTE | 2023-09-26 15:51 | DI.RAD.S_ITS ---
PROCEDURE: XR LUMBAR SPINE MIN 4V INDICATIONS: lumbar back and sciatic pain TECHNIQUE: 5 views of the lumbar spine were acquired, including bilateral oblique views. COMPARISON: None. FINDINGS: Bones: 5 nonrib-bearing vertebrae are present. Mild levoconvex curvature of the mid to lower lumbar spine. Mild grade 1 anterolisthesis at L5-S1. Trace grade 1 retrolisthesis at L1-2 and L2-3. No vertebral body compression fractures. No suspicious bony lesions. Multilevel disc space narrowing and degenerative plate changes and multilevel facet hypertrophy are seen throughout the lumbar spine. Soft tissues: Overlying bowel gas pattern is normal. No suspicious soft tissue calcifications. Oblique images: No pars defects. IMPRESSION: Moderate to severe multilevel spondylosis and degenerative spondylolisthesis. Approved by: Kj Red M.D. on 09/26/2023 at 21:54
== END ==
LOC: RAD 15:51
PROVIDERS: Family Provider Nurse Practitioner; PCP Nurse Practitioner; Referring Provider Nurse Practitioner; Visit Provider Nurse Practitioner
DX: M47.816 Spondylosis without myelopathy or radiculopathy, lumbar region (principal); M47.817 Spondylosis without myelopathy or radiculopathy, lumbosacral region; M54.30 Sciatica, unspecified side; M54.50 Low back pain, unspecified; M43.17 Spondylolisthesis, lumbosacral region
CPT/HCPCS: 72110

== ENCOUNTER → 2024-01-14 10:37 | Outpatient (CLI) | payer OTHER, SELFPAY | LOC: RESP 10:37 | PROVIDERS: Family Provider Nurse Practitioner; PCP Nurse Practitioner Family; Referring Provider Nurse Practitioner Family; Visit Provider Nurse Practitioner Family | DX: R06.02 Shortness of breath (principal); F17.210 Nicotine dependence, cigarettes, uncomplicated | CPT/HCPCS: 94060; 94726; 94729 ==

== ENCOUNTER → 2024-02-24 09:46 | Outpatient (CLI) | payer OTHER, SELFPAY ==
--- NOTE | 2024-02-24 09:46 | DI.CT.S_ITS ---
PROCEDURE: CT LUNG LOW DOSE SCREENING INDICATIONS: follow up lung nodule TECHNIQUE: Noncontrast 2.0-2.5 mm thick sections acquired from the pulmonary apices to the posterior costophrenic angles. 7 mm thick axial MIP, and 5 mm coronal and sagittal reformats were then acquired. For radiation dose reduction, the following was used: automated exposure control, adjustment of mA and/or kV according to patient size. COMPARISON: [facility], CT, CT LUNG LOW DOSE SCREENING, 03/12/2023, 12:42. FINDINGS: Image quality: Diagnostic Lungs and pleura: Basal atelectasis. No suspicious pulmonary nodules. No dense airspace disease or pleural effusions. Emphysematous changes are seen. Micro nodules identified previously are stable. No nodule measuring 6 mm or over requiring dedicated follow-up. Mediastinum, heart, and esophagus: Mild nonspecific distal esophageal wall thickening. Normal heart size. No pathologic lymph nodes by size criteria. A prominent precarinal lymph node appears stable, with fatty hilum normal morphology. Chest wall and thyroid: Unremarkable Upper abdomen: No gross abnormality on these low-dose noncontrast images. Bones: There are degenerative findings in the spine. IMPRESSION: No suspicious pulmonary nodules. LUNG-RADS 2; continued annual screening, if eligible. Other findings above. Dictated by: Anand Briseno M.D. on 02/24/2024 at 18:32 Approved by: Anand Briseno M.D. on 02/24/2024 at 18:36
== END ==
PROVIDERS: Family Provider Nurse Practitioner; PCP Nurse Practitioner Family; Referring Provider Nurse Practitioner; Visit Provider Nurse Practitioner
DX: J98.11 Atelectasis (principal); R91.1 Solitary pulmonary nodule; Z87.891 Personal history of nicotine dependence
CPT/HCPCS: 71271

== ENCOUNTER → 2024-03-10 12:07 | Outpatient (CLI) | payer OTHER, SELFPAY ==
--- NOTE | 2024-03-10 12:08 | DI.RAD.S_ITS ---
PROCEDURE: FL BARIUM SWALLOW INDICATIONS: Worsening esophageal dysphagia in the setting of EoE COMPARISON: [facility], CT, CT LUNG LOW DOSE SCREENING, 02/24/2024, 9:54. FINDINGS: Function: Spontaneous esophageal reflux up to the level of the sternal notch was identified on multiple trials. A barium pill was also ingested, which remained at the gastroesophageal junction and failed to progress into the stomach for at least 5 minutes, until thin barium was ingested to distend the esophagus. Morphology: Air-contrast images demonstrate normal mucosal morphology. Single contrast views show no esophageal strictures, extrinsic mass effects, or diverticula. Limited images of the stomach demonstrate normal appearance. No evidence of a hiatal hernia, pre and post Valsalva maneuver. IMPRESSION: Spontaneous esophageal reflux to the sternal notch, with fluoroscopic findings suggestive of underlying esophagitis, mainly at the gastroesophageal junction. Gastroenterological follow-up recommended. Dictated by: Palomo Zavala M.D. on 03/10/2024 at 16:05 Approved by: Palomo Zavala M.D. on 03/10/2024 at 16:09
== END ==
PROVIDERS: Family Provider Nurse Practitioner; PCP Nurse Practitioner Family; Referring Provider Internal Medicine; Visit Provider Internal Medicine
DX: K20.0 Eosinophilic esophagitis (principal); K21.9 Gastro-esophageal reflux disease without esophagitis
CPT/HCPCS: 74220

== ENCOUNTER 2024-06-04 09:27 | Day surgery (SDC) | payer OTHER, SELFPAY ==
--- NOTE | 2024-06-04 | PATH_ITS ---
[facility] Accession Number: [id number] No. of containers..01 Tissue . 01 Material submitted: . esophagus - ESOPHAGUS . 01 Clinical history: . R/O EOE . 01 Diagnosis: ESOPHGUS, BIOPSY: Squamous mucosa with increased intraepithelial eosinophils (up to 25 eosinophils per high-power field). Please see comment. Negative for dysplasia and malignancy. MRV 06/06/2024 1645 Local . 01 Comment: In the proper clinical setting, the histopathologic appearance would support a clinical impression of eosinophilic esophagitis. The differential diagnosis includes drug reaction, gastroesophageal reflux, and food allergies. . . 01 Electronically signed: . Tonny Gupta MD, PhD, Pathologist NPI- [id number] . 01 Gross description: . Received in formalin with two patient identifiers and esophagus, are four ruvalcaba soft tissue fragments, 0.4-0.5 cm in greatest dimension, submitted in A1. ([id number]) /MRV 06/05/2024 1328 Local . 01 Microscopic: . A. A PAS stain is negative for fungal organisms. A control stain shows appropriate reactivity. . . 01 Pathologist provided ICD-10: K20.0 . 01 CPT . 725877, [id number] Specimen Comment: A courtesy copy of this report has been sent to [phone] Performed at: [address] [id number] MD Archie Gardner MD Phone: [phone]
[2024-06-04 09:55] VITALS: BP 127/90; PULSE 94; RESP 16; TEMP 36.2; O2SAT 97
[2024-06-04] MEDS: LACTATED RINGERS 1,000 ML 42 ML IV (10:03)
--- NOTE | 2024-06-04 10:40 | PM.PREOP ---
Pre-operative Note Interval Note History & Physical reviewed/Exam performed by Physician: Yes Changes to H&P: No ASA Class (for procedural sedation): II
--- NOTE | 2024-06-04 10:40 | PM.OP.EC ---
Operative Date/Time/Diagnoses Date of procedure: 06/04/24 Pre-op diagnosis: See indication and findings Procedure & Clinicians Study performed: EGD and colonoscopy Same procedure as scheduled: Yes Indications: Family history of colon cancer due for follow-up colonoscopy. In addition has a history of substernal dysphagia and known history of eosinophilic esophagitis. He is maintained on pantoprazole which is not helping completely. In addition, recent barium swallow shows retention of contrast in the esophagus right down to the GE junction. Surgeon: Brandon Gerardo Procedure Notes Procedure in detail: After informed consent was obtained the patient was placed in left lateral decubitus position. The video upper scope was placed into the oropharynx and with the patient's help swallowed into the esophagus. The esophagus stomach duodenal were carefully examined. On withdrawal, retroflexed view the GE junction was performed. The scope was removed. The patient tolerated procedure well. The patient was then turned and the colonoscope substituted. This was passed into the rectum slowly advanced cecum. Preparation was good. On slow withdrawal mucosa was carefully examined. The scope was removed. The patient tolerated procedure well. Blood loss none Complications none Sedation Mac Findings EGD 1. Normal esophagus without evidence for EOE, biopsies taken to confirm 2. GE junction appears normal. Retroflexed view and movement of the scope shows that there may be a tiny bit of tightness there. Given the history of EOE I elected not to dilate him today but wait for biopsies. 3. Normal stomach 4. Normal duodenal bulb and sweep Colonoscopy Findings 1. Scattered sigmoid diverticulosis 2. Otherwise negative colonoscopy to cecum We will merely await biopsies. Most importantly finding active eosinophilic esophagitis with keep me from dilating him aggressively. On the other hand if he has no evidence of EOE routine dilation should be performed though perhaps after getting esophageal manometry to rule out achalasia Patient should have follow-up colonoscopy in 5 years given family history
[2024-06-04 11:22] VITALS: BP 103/51; PULSE 67; RESP 14; TEMP 36.9; O2SAT 93
[2024-06-04 11:27] VITALS: PULSE 68; RESP 18; TEMP 36.9; O2SAT 95
[2024-06-04 11:28] VITALS: BP 98/62
[2024-06-04 11:32] VITALS: BP 95/59; PULSE 67; RESP 15; TEMP 36.7; O2SAT 98
[2024-06-04 11:39] VITALS: BP 95/62; PULSE 72; RESP 15; TEMP 36.7; O2SAT 95
--- NOTE | 2024-06-04 12:17 | SUR.PHASEII ---
Patient passing flatus, repositioning independently. Dr. Gerardo evaluated patient, will continue to monitor per MD.
--- NOTE | 2024-06-04 12:41 | SUR.PHASEII ---
Pt DC to home after amb to [place]. More flatus and OK per DR Gerardo for DC to home. Pt stated he felt 'so much better' Steady on feet.
== END 2024-06-04 12:40 | disposition home or self-care (01) ==
PROVIDERS: Family Provider Nurse Practitioner; PCP Nurse Practitioner Family; Referring Provider Internal Medicine Gastroenterology; Visit Provider Internal Medicine Gastroenterology
PROC: 0DJ08ZZ Inspection of Upper Intestinal Tract, Via Natural or Artificial Opening Endoscopic (ICD-10-PCS; CPT 43239; principal; 2024-06-04 10:30)
PROC: 0DJD8ZZ Inspection of Lower Intestinal Tract, Via Natural or Artificial Opening Endoscopic (ICD-10-PCS; CPT 45378; 2024-06-04 10:30)
DX: Z12.11 Encounter for screening for malignant neoplasm of colon (principal); Z80.0 Family history of malignant neoplasm of digestive organs; R13.19 Other dysphagia; K57.30 Diverticulosis of large intestine without perforation or abscess without bleeding; K20.0 Eosinophilic esophagitis
CPT/HCPCS: 43239; 45378; J2704

== ENCOUNTER → 2024-07-30 10:58 | Outpatient (CLI) | payer OTHER, SELFPAY ==
[2024-07-30 12:14] LABS: Add Manual Diff / Slide Review NO; Basophils Absolute Auto 0 /uL (0-100); Basophils Percent Auto 0.9 % (0-2); Eosinophils Absolute Auto 300 /uL (0-450); Eosinophils Percent Auto 6.4 % (2-4); Hematocrit 43.3 % (41-53); Hemoglobin 14.7 g/dL (13.5-17.5); Lymphocytes Absolute Auto 900 /uL (1100-4500); Lymphocytes Percent Auto 16.1 % (25-40); Mean Corpuscular HGB Conc 33.8 % (30-36); Mean Corpuscular Hemoglobin 28.9 PG (26-34); Mean Corpuscular Volume 85.5 fL (80-100); Monocytes Absolute Auto 300 /uL (0-900); Monocytes Percent Auto 5.9 % (3-14); Neutrophils Absolute Auto 3900 /uL (1500-7000); Neutrophils Percent Auto 70.7 % (50-75); Platelet Count 209 X10^3/uL (150-400); Red Blood Cell Count 5.07 X10^6/uL (4.5-5.9); Red Cell Distribution Width 13.1 % (11.6-14.8); White Blood Cell Count 5.5 X10^3/uL (4.5-11.0)
[2024-07-30 12:25] LABS: Hemoglobin A1C% w Est Avg Glu 5.1 % (4.0-6.0)
[2024-07-30 12:37] LABS: BUN Creatinine Ratio 18.1 (6-22); Blood Urea Nitrogen 15 mg/dL (9-20); Calcium 9.3 mg/dL (8.4-10.2); Carbon Dioxide 22 mmol/L (22-32); Chloride 106 mmol/L (98-107); Cholesterol 160 mg/dL (140-199); Estimated Glomerular Filt Rate > 60 mL/min (>60); Glucose 119 mg/dL (70-99); HDL Cholesterol 45 mg/dL (40-60); HEMOLYSIS < 15 (0-50); LDL Cholesterol Calculated 63 mg/dL (<100); Potassium 4.1 mmol/L (3.4-5.1); Sodium 137 mmol/L (137-145); Triglycerides 259 mg/dL (35-150)
[2024-07-30 13:06] LABS: TSH w/ Reflex to FT4 0.32 uIU/mL (0.47-4.68)
[2024-07-30 13:35] LABS: Free T4, Direct Thyroxine 1.22 ng/dL (0.78-2.19)
[2024-07-30 22:36] LABS: PSA Ultrasensitive 0.618 ng/mL (0.000-4.000)
== END ==
PROVIDERS: Family Provider Nurse Practitioner; PCP Nurse Practitioner Family; Referring Provider Nurse Practitioner Family; Visit Provider Nurse Practitioner Family
DX: E66.3 Overweight (principal); Z91.89 Other specified personal risk factors, not elsewhere classified; Z87.891 Personal history of nicotine dependence; F41.9 Anxiety disorder, unspecified; E78.5 Hyperlipidemia, unspecified; G47.00 Insomnia, unspecified; I10 Essential (primary) hypertension; F32.9 Major depressive disorder, single episode, unspecified; C61 Malignant neoplasm of prostate
CPT/HCPCS: 36415; 80048; 80061; 83036; 84153; 84439; 84443; 85025

== ENCOUNTER → 2024-09-02 10:49 | Outpatient (CLI) | payer OTHER, SELFPAY ==
[2024-09-02 11:49] LABS: Free T3, Triiodothyronine Free 4.82 pg/mL (2.77-5.27); Free T4, Direct Thyroxine 1.19 ng/dL (0.78-2.19)
[2024-09-03 07:09] LABS: Thyroid Peroxidase Antibodies 9 IU/mL (0-34)
[2024-09-04 13:10] LABS: Anti Thyroglobulin Antibody <1.0 IU/mL (0.0-0.9)
== END ==
PROVIDERS: Family Provider Nurse Practitioner; PCP Nurse Practitioner Family; Referring Provider Nurse Practitioner Family; Visit Provider Nurse Practitioner Family
DX: R79.89 Other specified abnormal findings of blood chemistry (principal)
CPT/HCPCS: 36415; 84439; 84481; 86376; 86800

== ENCOUNTER → 2024-11-03 09:50 | Outpatient (CLI) | payer OTHER, SELFPAY ==
[2024-11-03 10:48] LABS: Alanine Aminotransferase 28 IU/L (<50); Albumin 4.3 g/dL (3.5-5.0); Albumin Globulin Ratio 1.8 (1.0-2.8); Alkaline Phosphatase 77 U/L (38-126); Globulin 2.4 g/dL (1.7-4.1); HEMOLYSIS < 15 (0-50); Total Protein 6.7 g/dL (6.3-8.2)
[2024-11-03 11:18] LABS: TSH w/ Reflex to FT4 0.74 uIU/mL (0.47-4.68)
[2024-11-03 11:24] LABS: Ferritin 61 ng/mL (18-464)
== END ==
PROVIDERS: Family Provider Nurse Practitioner; PCP Nurse Practitioner Family; Referring Provider Nurse Practitioner Family; Visit Provider Nurse Practitioner Family
DX: R53.83 Other fatigue (principal)
CPT/HCPCS: 36415; 80076; 82728; 84443